=== PATIENT | male | born 1985 | race Caucasian/White ===

== ENCOUNTER 2016-10-02 19:22 | Inpatient (IN) | payer OTHER ==
[2016-10-02] MEDS ORDERED: diazePAM 5 MG TABLET PO SCH (22:00)
[2016-10-02 22:35] VITALS: BMI 28.7
[2016-10-02] MEDS ORDERED: METHADONE HCL 10 MG TABLET (FOR DETOX USE ONLY) PO ONE ×2 (23:00→23:12)
--- NOTE | 2016-10-02 23:07 | HP ---
COWS - Scale Resting Pulse: 1= [place] 81-100 Sweatin= Chills/Flushing Restless Observation: 1= Difficult to Sit Still Pupil Size: 0= Normal to Room Light Bone or Joint Aches: 2= Severe Diffuse Aches Runny Nose/ Eye Tearin= Runny Nose/Eyes GI Upset > 30mins: 3= Vomiting/Diarrhea Tremor Observation: 2= Slight Tremor Visible Yawning Observation: 1= 1-2x During Session Anxiety or Irritability: 2=Irritable/Anxious Goose Flesh Skin: 0=Smooth Skin COWS Score: 15 CIWA Score - CIWA Score Nausea/Vomitin-Mild Nausea/No Vomiting Muscle Tremors: 4-Moderate,w/Arms Extend Anxiety: 4-Mod. Anxious/Guarded Agitation: 4-Moderately Restless Paroxysmal Sweats: 1-Minimal Palms Moist Orientation: 0-Oriented Tacttile Disturbances: 0-None Auditory Disturbances: 0-None Visual Disturbances: 0-None Headache: 0-None Present CIWA-Ar Total Score: 14 Admission [facility] - HPI Chief Complaint: withdrawal sx Allergies/Adverse Reactions: Allergies Allergy/AdvReac Type Severity Reaction Status Date / Time No Known Allergies Allergy Verified 03/11/15 17:43 History of Present Illness: 31 years old male with long history of alcohol opiate nicotine xanax dependence denies medical issue has depression is admitted to detox Exam Limitations: No Limitations - Ebola screening Have you traveled outside of the country in the last 21 days: No (N) Have you had contact with anyone from an Ebola affected area: No Have you been sick,other than usual withdrawal symptoms: No Do you have a fever: No - Review of Systems Constitutional: Chills, Changes in sleep, Weight Stable EENT: reports: No Symptoms Reported Respiratory: reports: No Symptoms reported Cardiac: reports: No Symptoms Reported GI: reports: Nausea, Poor Fluid Intake, Abdominal cramping : reports: No Symptoms Reported Musculoskeletal: reports: Back Pain, Joint Pain, Muscle Pain, Neck Pain Integumentary: reports: Change in Color (arms) Neuro: reports: Tremors Endocrine: reports: No Symptoms Reported Hematology: reports: No Symptoms Reported Psychiatric: reports: Judgement Intact, Orientated x3, Depressed Other Systems: Reviewed and Negative Patient History - Patient Medical History Hx Anemia: No Hx Asthma: Yes Hx Chronic Obstructive Pulmonary Disease (COPD): No Hx Cancer: No Hx Cardiac Disorders: No Hx Congestive Heart Failure: No Hx Hypertension: No Hx Hypercholesterolemia: No Hx Pacemaker: No HX Cerebrovascular Accident: No Hx Seizures: No Hx Dementia: No Hx Diabetes: No Hx Gastrointestinal Disorders: No Hx Liver Disease: No Hx Genitourinary Disorders: No Hx Sexually Transmitted Disorders: No Hx Renal Disease (ESRD): No Hx Thyroid Disease: No Hx Human Immunodeficiency Virus (HIV): No Hx Hepatitis C: No Hx Depression: Yes (anxiety) Hx Suicide Attempt: No Hx Bipolar Disorder: No Hx Schizophrenia: No - Patient Surgical History Past Surgical History: Yes Hx Neurologic Surgery: No Hx Cataract Extraction: No Hx Cardiac Surgery: No Hx Lung Surgery: No Hx Breast Surgery: No Hx Breast Biopsy: No Hx Abdominal Surgery: No Hx Appendectomy: No Hx Cholecystectomy: No Hx Genitourinary Surgery: No Hx Orthopedic Surgery: Yes (right hand, fx 2006) Anesthesia Reaction: No - PPD History Previous Implant?: Yes Documented Results: Negative w/proof Implanted On Prior R Admission?: Yes Date: 03/13/15 PPD to be Administered?: Yes - Smoking Cessation Smoking history: Current every day smoker Have you smoked in the past 12 months: Yes Aproximately how many cigarettes per day: 20 Cigars Per Day: 0 Hx Chewing Tobacco Use: No Initiated information on smoking cessation: Yes 'Breaking Loose' booklet given: 10/02/16 - Substance & Tx. History Hx Alcohol Use: Yes Hx Substance Use: Yes Substance Use Type: Alcohol, Opiates, Tranquilizers Hx Substance Use Treatment: Yes (03/11-03/13/16 [facility] - Substances Abused Alcohol Route: Oral Frequency: 3-6 times per week Amount used: volka pint Age of first use: 12 Date of Last Use: 10/01/16 Heroin Route: Injection Frequency: Daily Amount used: 40 bags Age of first use: 29 Date of Last Use: 10/01/16 Alprazolam (Xanax) Route: Oral Frequency: Daily Amount used: 4 mg Age of first use: 18 Date of Last Use: 10/02/16 Family Disease History - Family Disease History Family Disease History: Diabetes: Grandparent, Other: Mother ( suicid), Brother (overdose ), Sister ( suicid) Admission Physical Exam BHS - Vital Signs Vital Signs: Vital Signs - 24 hr 10/02/16 22:33 Temperature 97.0 F L Pulse Rate 86 Respiratory 18 Rate Blood Pressure 139/83 - Physical General Appearance: Yes: Nourished, Appropriately Dressed, Mild Distress, Tremorous, Irritable, Sweating, Anxious HEENTM: Yes: Hearing grossly Normal, Normal ENT Inspection, Normocephalic, Normal Voice Respiratory: Yes: Chest Non-Tender, Lungs Clear, Normal Breath Sounds, No Respiratory Distress, No Accessory Muscle Use Neck: Yes: Supple, Trachea in good position Breast: Yes: Breasts Symetrical Cardiology: Yes: Regular Rhythm, Regular Rate, S1, S2 Abdominal: Yes: Non Tender, Soft Genitourinary: Yes: Within Normal Limits Back: Yes: Normal Inspection Musculoskeletal: Yes: full range of Motion, Gait Steady, Back pain, Muscle Pain Extremities: Yes: Normal Range of Motion, Non-Tender, Tremors Neurological: Yes: Fully Oriented, Alert, Motor Strength 5/5, Depressed Affect Integumentary: Yes: Warm, Track [place] Lymphatic: Yes: Within Normal Limits - Diagnostic (1) Depression Current Visit: Yes Status: Suspected Qualifiers: Depression Type: dysthymia Qualified Code(s): F34.1 - Dysthymic disorder (2) Nicotine dependence Current Visit: Yes Status: Acute Qualifiers: Nicotine product type: cigarettes Substance use status: in withdrawal Qualified Code(s): F17.213 - Nicotine dependence, cigarettes, with withdrawal (3) Opioid dependence with withdrawal Current Visit: Yes Status: Acute (4) Alcohol dependence with uncomplicated withdrawal Current Visit: Yes Status: Acute (5) Sedative, hypnotic or anxiolytic dependence with withdrawal, uncomplicated Current Visit: Yes Status: Acute (6) Asthma Current Visit: Yes Status: Acute Qualifiers: Asthma severity: mild intermittent Asthma complication type: with status asthmaticus Qualified Code(s): J45.22 - Mild intermittent asthma with status asthmaticus Cleared for Admission [facility] - Detox or Rehab [facility] Level of Care: Medically Managed Detox Regimen/Protocol: Methadone/Valium [facility] Breath Alcohol Content Breath Alcohol Content: 0 Urine Drug Screen - Results Drug Screen Negative: No Urine Drug Screen Results: OPI-Opiates, BZO-Benzodiazepines
[2016-10-02] MEDS ORDERED: ACETAMINOPHEN 325 MG TABLET (FP) PO PRN (23:12)
[2016-10-02] MEDS ORDERED: guaiFENesin/D-METHORPHAN HB 10 ML UNIT-DOSE CUPS PO PRN (23:12)
[2016-10-02] MEDS ORDERED: LOPERAMIDE HCL 2 MG CAPSULE PO PRN (23:12)
[2016-10-02] MEDS ORDERED: P-EPHED 60MG/TRIPROLIDI 2.5MG TABLET PO PRN (23:12)
[2016-10-02] MEDS ORDERED: diphenhydrAMINE HCL 50 MG CAPSULE PO PRN (23:12)
[2016-10-02] MEDS ORDERED: diazePAM 5 MG TABLET PO PRN (23:12)
[2016-10-02] MEDS ORDERED: NICOTINE POLACRILEX 4 MG GUM BUC PRN (23:12)
[2016-10-02] MEDS ORDERED: MENTHOL/PHENOL 1 EACH UD MM PRN (23:12)
[2016-10-02] MEDS ORDERED: IBUPROFEN 400 MG TABLET (FP) PO PRN (23:12)
[2016-10-02] MEDS ORDERED: MAGNESIUM CITRATE 300 ML BOTTLE PO PRN (23:12)
[2016-10-02] MEDS ORDERED: diazePAM 5 MG TABLET PO ONE (23:12)
[2016-10-02] MEDS ORDERED: MAG HYDROX/AL HYDROX/SIMETH 30 ML UNIT-DOSE CUP PO PRN (23:12)
[2016-10-02] MEDS ORDERED: MAGNESIUM HYDROX 2400MG/30ML ORAL SUSPENSION 30 ML CUP PO PRN (23:12)
[2016-10-02] MEDS ORDERED: ALBUTEROL SO4 6.7 GM HFA INHALER IH PRN (23:16)
[2016-10-03] MEDS ORDERED: METHADONE HCL 10 MG TABLET (FOR DETOX USE ONLY) PO ONE ×3 (00:06→23:00)
[2016-10-03] MEDS ORDERED: diazePAM 5 MG TABLET PO ONE (00:06)
[2016-10-03] MEDS: diazePAM 5 MG TABLET PO SCH ×3 (05:36→22:30)
[2016-10-03] MEDS ORDERED: METHADONE HCL 10 MG TABLET (FOR DETOX USE ONLY) PO SCH (10:00)
[2016-10-03] MEDS: NICOTINE 21 MG/24 HOURS TOPICAL PATCH TD SCH (10:27)
[2016-10-03] MEDS: PRENATAL VITAMINS W/ FOLIC ACID TABLET (FP) PO SCH (10:27)
[2016-10-03] MEDS: diazePAM 5 MG TABLET PO PRN ×2 (10:29→16:52)
[2016-10-03 10:35] LABS: MCH 28.4 pg (25.7-33.7); MCHC 33.6 g/dl (32.0-35.9); MEAN CELL VOLUME 84.4 fl (80-96); MEAN PLT VOLUME 7.4 fl (7.5-11.1); PLATELET COUNT 361 K/MM3 (134-434); RDW 14.5 % (11.9-15.9); WHITE BLOOD COUNT 9.5 K/mm3 (4.0-10.0)
[2016-10-03 10:46] LABS: ALBUMIN 3.1 g/dl (3.4-5.0); ALK PHOS 73 U/L (45-117); ANION GAP 6 (8-16); BILIRUBIN,TOTAL 0.4 mg/dL (0.2-1.0); CO2 29 mmol/L (21-32); CREATININE 0.7 mg/dL (0.7-1.3); GLUCOSE,RANDOM 90 mg/dL (74-106); SGOT/AST 14 U/L (15-37); SGPT/ALT 33 U/L (12-78); TOT PROT 6.8 g/dl (6.4-8.2)
[2016-10-03] MEDS ORDERED: diphenhydrAMINE HCL 50 MG CAPSULE PO PRN (11:05)
--- NOTE | 2016-10-03 11:05 | PN ---
BHS COWS - Scale Resting Pulse: 0= [place] 80 or Below Sweatin= Chills/Flushing Restless Observation: 3= Extraneous Movement Pupil Size: 2= Moderately Dilated Bone or Joint Aches: 4=Acute Joint/Muscle Pain Runny Nose/ Eye Tearin= None GI Upset > 30mins: 0= None Tremor Observation of Outstretched Hands: 2= Slight Tremor Visible Yawning Observation: 2= >3x During Session Anxiety or Irritability: 2=Irritable/Anxious Goose Flesh Skin: 0=Smooth Skin COWS Score: 16 BHS Progress Note (SOAP) Subjective: ANXIETY,SWEATS,TREMORS,YAWNING, FATIGUE, INTERMITTENT SLEEP Objective: 10/03/16 11:04 Vital Signs Temperature 96.3 F L 10/03/16 09:47 Pulse Rate 67 10/03/16 09:47 Respiratory Rate 18 10/03/16 09:47 Blood Pressure 131/67 10/03/16 09:47 O2 Sat by Pulse Oximetry (%) Laboratory Last Values WBC 9.5 K/mm3 (4.0-10.0) 10/03/16 07:00 RBC 4.67 M/mm3 (4.00-5.60) 10/03/16 07:00 Hgb 13.2 GM/dL (11.7-16.9) D 10/03/16 07:00 Hct 39.4 % (35.4-49) 10/03/16 07:00 MCV 84.4 fl (80-96) 10/03/16 07:00 MCH 28.4 pg (25.7-33.7) 10/03/16 07:00 MCHC 33.6 g/dl (32.0-35.9) 10/03/16 07:00 RDW 14.5 % (11.9-15.9) 10/03/16 07:00 Plt Count 361 K/MM3 (134-434) 10/03/16 07:00 MPV 7.4 fl (7.5-11.1) L 10/03/16 07:00 Sodium 139 mmol/L (136-145) 10/03/16 07:00 Potassium 4.2 mmol/L (3.5-5.1) 10/03/16 07:00 Chloride 104 mmol/L (98-107) 10/03/16 07:00 Carbon Dioxide 29 mmol/L (21-32) 10/03/16 07:00 Anion Gap 6 (8-16) L 10/03/16 07:00 BUN 14 mg/dL (7-18) D 10/03/16 07:00 Creatinine 0.7 mg/dL (0.7-1.3) 10/03/16 07:00 Creat Clearance w eGFR > 60 (>60) 10/03/16 07:00 Random Glucose 90 mg/dL (74-106) 10/03/16 07:00 Calcium 9.0 mg/dL (8.5-10.1) 10/03/16 07:00 Total Bilirubin 0.4 mg/dL (0.2-1.0) D 10/03/16 07:00 AST 14 U/L (15-37) L D 10/03/16 07:00 ALT 33 U/L (12-78) 10/03/16 07:00 Alkaline Phosphatase 73 U/L (45-117) D 10/03/16 07:00 Total Protein 6.8 g/dl (6.4-8.2) 10/03/16 07:00 Albumin 3.1 g/dl (3.4-5.0) L 10/03/16 07:00 Assessment: 10/03/16 11:04 WITHDRAWAL SX Plan: CONTINUE DETOX INCREASE BENADRYL 100 MG PO HS
--- NOTE | 2016-10-03 11:07 | PN ---
[facility] CIWA - CIWA Score Nausea/Vomitin-No Nausea/No Vomiting Muscle Tremors: 4-Moderate,w/Arms Extend Anxiety: 4-Mod. Anxious/Guarded Agitation: 2 Paroxysmal Sweats: 1-Minimal Palms Moist Orientation: 0-Oriented Tacttile Disturbances: 3-Moderate Itch/Numb/Burn Auditory Disturbances: 0-None Visual Disturbances: 0-None Headache: 0-None Present CIWA-Ar Total Score: 14
--- NOTE | 2016-10-03 11:33 | CONSULT ---
[facility] Psychiatric Consult - Data Date of interview: 10/03/16 Admission source: [facility] Identifying data: Patient is approached at bedside for psychiatric evaluation.Mr Rebolledo refused.Staff is made aware.
--- NOTE | 2016-10-03 20:00 | EKG ---
Test Reason : Blood Pressure : / mmHG Vent. Rate : 050 BPM Atrial Rate : 050 BPM P-R Int : 148 ms QRS Dur : 092 ms QT Int : 454 ms P-R-T Axes : 037 077 063 degrees QTc Int : 413 ms SINUS BRADYCARDIA WITH SINUS ARRHYTHMIA OTHERWISE NORMAL ECG WHEN COMPARED WITH ECG OF 03-OCT-2016 00:44, SINUS RHYTHM HAS REPLACED ECTOPIC ATRIAL RHYTHM NONSPECIFIC T WAVE ABNORMALITY NO LONGER EVIDENT IN INFERIOR LEADS Confirmed by OLIVER KELLER MD ([id number] on 10/03/2016 8:00:07 PM Referred By: Confirmed By:OLIVER KELLER MD
--- NOTE | 2016-10-03 20:00 | EKG ---
Test Reason : Blood Pressure : / mmHG Vent. Rate : 052 BPM Atrial Rate : 052 BPM P-R Int : 132 ms QRS Dur : 094 ms QT Int : 442 ms P-R-T Axes : 126 146 143 degrees QTc Int : 411 ms SUSPECT ARM LEAD REVERSAL, INTERPRETATION ASSUMES NO REVERSAL UNUSUAL P AXIS, POSSIBLE ECTOPIC ATRIAL BRADYCARDIA WITH UNDETERMINED RHYTHM IRREGULARITY LEFT POSTERIOR FASCICULAR BLOCK ABNORMAL ECG WHEN COMPARED WITH ECG OF 01-MAR-2015 20:05, ECTOPIC ATRIAL RHYTHM HAS REPLACED SINUS RHYTHM VENT. RATE HAS DECREASED BY 98 BPM T WAVE INVERSION NO LONGER EVIDENT IN INFERIOR LEADS Confirmed by OLIVER KELLER MD ([id number] on 10/03/2016 8:00:24 PM Referred By: Confirmed By:OLIVER KELLER MD
[2016-10-03] MEDS ORDERED: THIAMINE HCL 100 MG TABLET (FP) PO SCH (22:00)
[2016-10-04] MEDS: diazePAM 5 MG TABLET PO PRN ×2 (02:44→10:53)
[2016-10-04] MEDS: diazePAM 5 MG TABLET PO SCH (06:03)
[2016-10-04] MEDS ORDERED: METHADONE HCL 5 MG TABLET (FOR DETOX USE ONLY) PO SCH (10:00)
[2016-10-04] MEDS ORDERED: METHADONE HCL 10 MG TABLET (FOR DETOX USE ONLY) PO SCH (10:00)
[2016-10-04] MEDS ORDERED: diazePAM 5 MG TABLET PO SCH (10:00)
[2016-10-04 10:12] VITALS: BP 129/71; PULSE 62; TEMP 97
[2016-10-04] MEDS: NICOTINE 21 MG/24 HOURS TOPICAL PATCH TD SCH (10:52)
[2016-10-04] MEDS: PRENATAL VITAMINS W/ FOLIC ACID TABLET (FP) PO SCH (10:52)
--- NOTE | 2016-10-04 11:57 | DS ---
[facility] Detox Discharge Summary Admission Date: 10/02/16 Discharge Date: 10/04/16 - History Present History: Alcohol Dependence, Opioid Dependence, Sedative Dependence Additional Comments: PT DECLINED TO CONTINUE WITH DETOX STATING HE HAS AN EXAM TO DO OTHERWISE WILL FAIL THE CLASS. ALERT O X 3. NAD. Pertinent Past History: ASTHMA PALPITATIONS/SINUS TACHYCARDIA - Physical Exam Results Vital Signs: Vital Signs Temperature 97 F L 10/04/16 10:11 Pulse Rate 62 10/04/16 10:11 Respiratory Rate 20 10/04/16 10:11 Blood Pressure 129/71 10/04/16 10:11 O2 Sat by Pulse Oximetry (%) - Treatment Hospital Course: Detox Protocol Followed, Detoxed Safely, Responded well, Discharged Condition Good - Medication Discharge Medications: Ambulatory Orders Quetiapine Fumarate [Seroquel -] 400 mg PO HS 10/03/16 Zolpidem Tartrate [Ambien] 10 mg PO HS 10/03/16 - Diagnosis (1) Alcohol dependence with uncomplicated withdrawal Current Visit: Yes Status: Acute (2) Asthma Current Visit: Yes Status: Acute Qualifiers: Asthma severity: mild intermittent Asthma complication type: with status asthmaticus Qualified Code(s): J45.22 - Mild intermittent asthma with status asthmaticus (3) Nicotine dependence Current Visit: Yes Status: Acute Qualifiers: Nicotine product type: cigarettes Substance use status: in withdrawal Qualified Code(s): F17.213 - Nicotine dependence, cigarettes, with withdrawal (4) Opioid dependence with withdrawal Current Visit: Yes Status: Acute (5) Sedative, hypnotic or anxiolytic dependence with withdrawal, uncomplicated Current Visit: Yes Status: Acute - AMA Did Patient Leave Against Medical Advice: Yes (AMA)
[2016-10-05] MEDS ORDERED: diazePAM 5 MG TABLET PO SCH (10:00)
[2016-10-05] MEDS ORDERED: METHADONE HCL 5 MG TABLET (FOR DETOX USE ONLY) PO SCH (10:00)
[2016-10-06] MEDS ORDERED: diazePAM 5 MG TABLET PO SCH (10:00)
[2016-10-06] MEDS ORDERED: METHADONE HCL 10 MG TABLET (FOR DETOX USE ONLY) PO SCH (10:00)
[2016-10-07] MEDS ORDERED: METHADONE HCL 5 MG TABLET (FOR DETOX USE ONLY) PO SCH (06:00)
[2016-10-07] MEDS ORDERED: METHADONE HCL 10 MG TABLET (FOR DETOX USE ONLY) PO SCH (10:00)
[2016-10-07] MEDS ORDERED: diazePAM 5 MG TABLET PO SCH (10:00)
[2016-10-08] MEDS ORDERED: METHADONE HCL 5 MG TABLET (FOR DETOX USE ONLY) PO SCH (06:00)
== END 2016-10-04 11:30 | disposition left against medical advice (07) | DRG 770 ==
LOC: YASAS 19:22 → Y3N 23:53
PROVIDERS: ADMIT Internal Medicine; ATTEND Internal Medicine
PROC: HZ2ZZZZ Detoxification Services for Substance Abuse Treatment (ICD-10-PCS; principal; 2016-10-02)
DX: F11.23 Opioid dependence with withdrawal (principal); F13.230 Sedative, hypnotic or anxiolytic dependence with withdrawal, uncomplicated; F10.230 Alcohol dependence with withdrawal, uncomplicated; F17.213 Nicotine dependence, cigarettes, with withdrawal; J45.22 Mild intermittent asthma with status asthmaticus
CPT/HCPCS: 36415; 80053; 85027; 86593; 86803; 93005; 93010

== ENCOUNTER 2018-05-24 17:58 | Inpatient (IN) | payer MEDICARE ==
[2018-05-24 18:22] VITALS: BMI 27.2
--- NOTE | 2018-05-24 19:36 | HP ---
COWS - Scale Resting Pulse: 1= [place] 81-100 Sweatin=Flushed/Facial Moisture Restless Observation: 1= Difficult to Sit Still Pupil Size: 0= Normal to Room Light Bone or Joint Aches: 2= Severe Diffuse Aches Runny Nose/ Eye Tearin= None GI Upset > 30mins: 2= Nausea/Diarrhea Tremor Observation: 2= Slight Tremor Visible Yawning Observation: 0= None Anxiety or Irritability: 2=Irritable/Anxious Goose Flesh Skin: 3=Piloerection COWS Score: 15 CIWA Score - Admission Criteria [facility] Guidelines: Admission for Medically Managed Detox: Requires at least one of the followin. CIWA greater than 12 2. Seizures within the past 24 hours 3. Delirium tremens within the past 24 hours 4. Hallucinations within the past 24 hours 5. Acute intervention needed for co occurring medical disorder 6. Acute intervention needed for co occurring psychiatric disorder 7. Severe withdrawal that cannot be handled at a lower level of care (continued vomiting, continued diarrhea, abnormal vital signs) requiring intravenous medication and/or fluids 8. Admission ROS [facility] Chief Complaint: I want to detox from heroin Allergies/Adverse Reactions: Allergies Allergy/AdvReac Type Severity Reaction Status Date / Time No Known Allergies Allergy Verified 10/03/16 02:26 History of Present Illness: 33 year old male with dependence on opiates presents for detox, he denies recent treatment, last treatment was last year at [facility], he signed out AMA. He drinks alcohol socially. Exam Limitations: No Limitations - Ebola screening Have you traveled outside of the country in the last 21 days: No (N) Have you had contact with anyone from an Ebola affected area: No Have you been sick,other than usual withdrawal symptoms: No Do you have a fever: No - Review of Systems Constitutional: Chills, Loss of Appetite, Night Sweats, Changes in sleep, Unintentional Wgt. Loss EENT: reports: Blurred Vision, Nose Congestion Respiratory: reports: No Symptoms reported Cardiac: reports: No Symptoms Reported GI: reports: Diarrhea, Nausea, Poor Appetite, Poor Fluid Intake, Vomiting, Abdominal cramping : reports: No Symptoms Reported Musculoskeletal: reports: Back Pain, Joint Pain, Muscle Pain, Muscle Weakness Integumentary: reports: Erythema Neuro: reports: Numbness, Paresthesia, Tremors Endocrine: reports: No Symptoms Reported Hematology: reports: No Symptoms Reported Psychiatric: reports: Orientated x3, Anxious, Depressed Other Systems: Reviewed and Negative Patient History - Patient Medical History Hx Anemia: No Hx Asthma: Yes Hx Chronic Obstructive Pulmonary Disease (COPD): No Hx Cancer: No Hx Cardiac Disorders: No Hx Congestive Heart Failure: No Hx Hypertension: No Hx Hypercholesterolemia: No Hx Pacemaker: No HX Cerebrovascular Accident: No Hx Seizures: No Hx Dementia: No Hx Diabetes: No Hx Gastrointestinal Disorders: No Hx Liver Disease: No Hx Genitourinary Disorders: No Hx Sexually Transmitted Disorders: No Hx Renal Disease (ESRD): No Hx Thyroid Disease: No Hx Human Immunodeficiency Virus (HIV): No Hx Hepatitis C: No Hx Depression: Yes Hx Suicide Attempt: No Hx Bipolar Disorder: No Hx Schizophrenia: No - Patient Surgical History Past Surgical History: Yes Hx Neurologic Surgery: No Hx Cataract Extraction: No Hx Cardiac Surgery: No Hx Lung Surgery: No Hx Breast Surgery: No Hx Breast Biopsy: No Hx Abdominal Surgery: No Hx Appendectomy: No Hx Cholecystectomy: No Hx Genitourinary Surgery: No Hx Section: No Hx Orthopedic Surgery: Yes (right hand, fx 2006) Anesthesia Reaction: No - PPD History Previous Implant?: No Documented Results: Negative w/proof Implanted On Prior [facility] Admission?: Yes Date: 10/06/16 PPD to be Administered?: Yes - Smoking Cessation Smoking history: Current every day smoker Have you smoked in the past 12 months: Yes Aproximately how many cigarettes per day: 20 Cigars Per Day: 0 Hx Chewing Tobacco Use: No Initiated information on smoking cessation: Yes 'Breaking Loose' booklet given: 05/24/18 - Substance & Tx. History Hx Alcohol Use: Yes (Vodka) Hx Substance Use: Yes Substance Use Type: Cocaine, Heroin Hx Substance Use Treatment: Yes - Substances abused Heroin Substance route: Injection Amount used: 30 bags Age of first use: 29 Date of last use: 05/24/18 Family Disease History - Family Disease History Family Disease History: Diabetes: Grandparent, Other: Mother (suicide), Brother (overdose ), Sister ( suicide) Admission Physical Exam BHS - Vital Signs Vital Signs: Vital Signs - 24 hr 05/24/18 18:21 Temperature 96.9 F L Pulse Rate 84 Respiratory 18 Rate Blood Pressure 137/79 - Physical General Appearance: Yes: No Apparent Distress HEENTM: Yes: Hearing grossly Normal, Normocephalic, Normal Voice, GERI, Tm's normal Respiratory: Yes: Chest Non-Tender, Lungs Clear, No Respiratory Distress, No Accessory Muscle Use Neck: Yes: No masses,lesions,Nodules, Supple Breast: Yes: Breast Exam Deferred Cardiology: Yes: Regular Rhythm, Regular Rate, S1, S2 Abdominal: Yes: Within Normal Limits Genitourinary: Yes: Within Normal Limits Back: Yes: Normal Inspection Musculoskeletal: Yes: full range of Motion, Gait Steady, Pelvis Stable Extremities: Yes: Normal Inspection Neurological: Yes: jack setter II-XII NML intact, Fully Oriented, Alert, Normal Mood/ Affect, Normal Response Integumentary: Yes: Cold, Clammy, Track [place] - Diagnostic (1) Asthma Current Visit: No Status: Chronic Qualifiers: Asthma severity: mild Asthma persistence: intermittent Asthma complication type: with status asthmaticus Qualified Code(s): J45.22 - Mild intermittent asthma with status asthmaticus (2) Nicotine dependence Current Visit: Yes Status: Acute Qualifiers: Nicotine product type: cigarettes Substance use status: uncomplicated Qualified Code(s): F17.210 - Nicotine dependence, cigarettes, uncomplicated (3) Opioid dependence with withdrawal Current Visit: Yes Status: Acute Cleared for Admission S - Detox or Rehab S Level of Care: Medically Managed Detox Regimen/Protocol: Methadone Breathalyzer - Breathalyzer Breathalyzer: 0 Urine Drug Screen - Test Device Lot number: [id number] Expiration date: 01/18/20 - Control Is test valid?: Yes - Results Drug screen NEGATIVE: No Urine drug screen results: ELVIA-Cocaine, FEN-Fentanyl, MOP-Opiates Inpatient Rehab Admission - Rehab Decision to Admit Inpatient rehab admission?: No - Initial Determination Are CD services needed?: Yes Free of communicable disease: Yes Not in need of hospitalization: Yes
[2018-05-24] MEDS ORDERED: ACETAMINOPHEN 325 MG TABLET (FP) PO PRN (19:39)
[2018-05-24] MEDS ORDERED: MELATONIN 5 MG TABLETS PO PRN (19:39)
[2018-05-24] MEDS ORDERED: MAGNESIUM HYDROX 2400MG/30ML ORAL SUSPENSION 30 ML CUP PO PRN (19:39)
[2018-05-24] MEDS ORDERED: BISMUTH SUBSALICYLATE 524 MG/30 ML UD PO PRN (19:39)
[2018-05-24] MEDS ORDERED: hydrOXYzine PAMOATE 50 MG CAPSULE (FP) PO PRN (19:39)
[2018-05-24] MEDS ORDERED: ONDANSETRON *ODT* 4 MG TABLET SL PRN (19:39)
[2018-05-24] MEDS ORDERED: IBUPROFEN 400 MG TABLET (FP) PO PRN (19:39)
[2018-05-24] MEDS ORDERED: MAGNESIUM CITRATE 300 ML BOTTLE PO PRN (19:39)
[2018-05-24] MEDS ORDERED: NICOTINE POLACRILEX 2 MG GUM BUC PRN (19:39)
[2018-05-24] MEDS ORDERED: MAG HYDROX/AL HYDROX/SIMETH 30 ML UNIT-DOSE CUP PO PRN (19:39)
[2018-05-24] MEDS ORDERED: cloNIDine HCL 0.1 MG TABLET PO PRN (19:39)
[2018-05-24] MEDS ORDERED: METHOCARBAMOL 500 MG TABLET PO PRN (19:39)
[2018-05-24] MEDS ORDERED: MENTHOL/PHENOL 1 EACH UD MM PRN (19:39)
[2018-05-24] MEDS ORDERED: METHADONE HCL 10 MG TABLET (FOR DETOX USE ONLY) PO ONE ×2 (20:45→23:00)
[2018-05-24] MEDS: clonazePAM 0.5 MG TABLET PO PRN (20:51)
[2018-05-24] MEDS: NICOTINE 14 MG/24 HOURS TOPICAL PATCH TD SCH (20:51)
[2018-05-24] MEDS ORDERED: THIAMINE HCL 100 MG TABLET (FP) PO SCH (22:00)
[2018-05-25] MEDS: clonazePAM 0.5 MG TABLET PO PRN ×2 (03:59→10:08)
[2018-05-25 09:56] LABS: ALBUMIN 3.4 g/dl (3.4-5.0); ALK PHOS 73 U/L (45-117); ANION GAP 8 MMOL/L (8-16); BILIRUBIN,TOTAL 0.5 mg/dL (0.2-1); BLOOD UREA NITROGEN 15 mg/dL (7-18); CALCIUM 8.5 mg/dL (8.5-10.1); CHLORIDE 104 mmol/L (98-107); CO2 27 mmol/L (21-32); CREATININE 0.8 mg/dL (0.55-1.3); GLUCOSE,RANDOM 103 mg/dL (74-106); HEMOGLOBIN 13.3 GM/dL (11.7-16.9); MCH 29.6 pg (25.7-33.7); MEAN CELL VOLUME 87.1 fl (80-96); MEAN PLT VOLUME 7.3 fl (7.5-11.1); PLATELET COUNT 369 K/MM3 (134-434); RBC 4.48 M/mm3 (4.00-5.60); RDW 13.8 % (11.9-15.9); SGOT/AST 13 U/L (15-37); SGPT/ALT 25 U/L (13-61); SODIUM 139 mmol/L (136-145); TOT PROT 7.5 g/dl (6.4-8.2); WHITE BLOOD COUNT 10.8 K/mm3 (4.0-10.0)
[2018-05-25] MEDS ORDERED: PRENATAL VITAMINS W/ FOLIC ACID TABLET (FP) PO SCH (10:00)
[2018-05-25] MEDS ORDERED: METHADONE HCL 5 MG TABLET (FOR DETOX USE ONLY) PO ONE (10:00)
[2018-05-25] MEDS: NICOTINE 14 MG/24 HOURS TOPICAL PATCH TD SCH (10:04)
--- NOTE | 2018-05-25 15:40 | PN ---
BHS COWS - Scale Resting Pulse: 1= [place] 81-100 Sweatin= Chills/Flushing Restless Observation: 3= Extraneous Movement Pupil Size: 0= Normal to Room Light Bone or Joint Aches: 2= Severe Diffuse Aches Runny Nose/ Eye Tearin= Runny Nose/Eyes GI Upset > 30mins: 3= Vomiting/Diarrhea Tremor Observation of Outstretched Hands: 2= Slight Tremor Visible Yawning Observation: 0= None Anxiety or Irritability: 2=Irritable/Anxious Goose Flesh Skin: 0=Smooth Skin COWS Score: 16 BHS Progress Note (SOAP) Subjective: Sweating, chills, tremor, muscle ache, diarrhea, interrupted sleep, anxious Objective: 05/25/18 15:39 Last Vital Signs Temp Pulse Resp BP Pulse Ox 97.5 F L 89 18 121/78 05/25/18 09:26 05/25/18 09:26 05/25/18 09:26 05/25/18 09:26 Laboratory Tests 05/25/18 05/25/18 05/25/18 07:50 07:50 07:50 WBC 10.8 H RBC 4.48 Hgb 13.3 Hct 39.0 MCV 87.1 MCH 29.6 MCHC 34.0 RDW 13.8 Plt Count 369 MPV 7.3 L Sodium 139 Potassium 4.0 Chloride 104 Carbon Dioxide 27 Anion Gap 8 BUN 15 Creatinine 0.8 Creat Clearance w eGFR 112.03 Random Glucose 103 Calcium 8.5 Total Bilirubin 0.5 AST 13 L ALT 25 Alkaline Phosphatase 73 Total Protein 7.5 Albumin 3.4 RPR Titer Nonreactive Labs reviewed Assessment: 05/25/18 15:39 Withdrawal symptoms Plan: Continue detox Encouraged PO water hydration
[2018-05-25 15:44] VITALS: BP 138/80; PULSE 96; TEMP 97
--- NOTE | 2018-05-25 16:12 | DS ---
[facility] Detox Discharge Summary Admission Date: 05/24/18 Discharge Date: 05/25/18 - History Present History: Opioid Dependence Additional Comments: Patient demanded to leave AMA despite encouragement from staff to complete detox. As per patient, he has a class tomorrow morning and he knew when he came here. Patient instructed to call 911 if feeling sick or withdrawal symptoms and to see his PCP within 3 days. Patient is A/A/Ox3, in nad, vss, ambulatory. Pertinent Past History: Asthma Nicotine dependence Opioid dependence - Physical Exam Results Vital Signs: Vital Signs Temperature 97.0 F L 05/25/18 15:43 Pulse Rate 96 H 05/25/18 15:43 Respiratory Rate 18 05/25/18 15:43 Blood Pressure 138/80 05/25/18 15:43 O2 Sat by Pulse Oximetry (%) Pertinent Admission Physical Exam Findings: Withdrawal symptoms Laboratory Tests 05/25/18 05/25/18 05/25/18 07:50 07:50 07:50 WBC 10.8 H RBC 4.48 Hgb 13.3 Hct 39.0 MCV 87.1 MCH 29.6 MCHC 34.0 RDW 13.8 Plt Count 369 MPV 7.3 L Sodium 139 Potassium 4.0 Chloride 104 Carbon Dioxide 27 Anion Gap 8 BUN 15 Creatinine 0.8 Creat Clearance w eGFR 112.03 Random Glucose 103 Calcium 8.5 Total Bilirubin 0.5 AST 13 L ALT 25 Alkaline Phosphatase 73 Total Protein 7.5 Albumin 3.4 RPR Titer Nonreactive Labs reviewed - Medication Discharge Medications: Ambulatory Orders NK [No Known Home Medication] 05/24/18 - Diagnosis (1) Nicotine dependence Status: Chronic Qualifiers: Nicotine product type: cigarettes Substance use status: uncomplicated Qualified Code(s): F17.210 - Nicotine dependence, cigarettes, uncomplicated (2) Opioid dependence with withdrawal Status: Acute (3) Asthma Status: Chronic Qualifiers: Asthma severity: mild Asthma persistence: intermittent Asthma complication type: with status asthmaticus Qualified Code(s): J45.22 - Mild intermittent asthma with status asthmaticus - AMA Did Patient Leave Against Medical Advice: Yes (Instructed to call [phone] if feeling sick or any withdrawal symptoms)
[2018-05-26] MEDS ORDERED: METHADONE HCL 10 MG TABLET (FOR DETOX USE ONLY) PO ONE (10:00)
--- NOTE | 2018-05-26 15:38 | EKG ---
Test Reason : Blood Pressure : / mmHG Vent. Rate : 061 BPM Atrial Rate : 061 BPM P-R Int : 132 ms QRS Dur : 086 ms QT Int : 430 ms P-R-T Axes : 031 065 047 degrees QTc Int : 432 ms NORMAL SINUS RHYTHM ST ELEVATION, CONSIDER EARLY REPOLARIZATION BORDERLINE ECG WHEN COMPARED WITH ECG OF 03-OCT-2016 05:58, NO SIGNIFICANT CHANGE WAS FOUND Confirmed by TRANG PHILLIPS MD ([id number]) on 05/26/2018 3:37:42 PM Referred By: Confirmed By:TRANG PHILLIPS MD
[2018-05-27] MEDS ORDERED: METHADONE HCL 5 MG TABLET (FOR DETOX USE ONLY) PO ONE (06:00)
== END 2018-05-25 16:04 | disposition left against medical advice (07) | DRG 770 ==
LOC: YASAS 17:58 → Y6N 20:18
PROVIDERS: ADMIT Surgery; ATTEND Surgery
PROC: HZ2ZZZZ Detoxification Services for Substance Abuse Treatment (ICD-10-PCS; principal; 2018-05-24)
DX: F11.23 Opioid dependence with withdrawal (principal); F17.210 Nicotine dependence, cigarettes, uncomplicated; F32.9 Major depressive disorder, single episode, unspecified; J45.22 Mild intermittent asthma with status asthmaticus
CPT/HCPCS: 36415; 80053; 85027; 86593; 93005; 93010; J0735

== ENCOUNTER 2018-06-21 21:31 | Emergency (ER) | payer SELFPAY ==
[2018-06-21 21:55] VITALS: BP 147/94; PULSE 94; TEMP 98; BMI 29.0
[2018-06-21] MEDS ORDERED: IBUPROFEN 400 MG TABLET (FP) PO ONE ×2 (23:30→23:38)
[2018-06-21] MEDS ORDERED: CYCLOBENZAPRINE HCL 10 MG TABLET (FP) PO ONE (23:30)
[2018-06-21] MEDS ORDERED: METHOCARBAMOL 500 MG TABLET PO ONE (23:34)
[2018-06-21] MEDS ORDERED: METHOCARBAMOL 500 MG TABLET ONE (23:37)
--- NOTE | 2018-06-21 23:55 | PDOC ---
History of Present Illness - General Chief Complaint: Injury Stated Complaint: FALL Time Seen by Provider: 06/21/18 23:19 History Source: Patient Exam Limitations: No Limitations Past History - Past Medical History Allergies/Adverse Reactions: Allergies Allergy/AdvReac Type Severity Reaction Status Date / Time No Known Allergies Allergy Verified 05/24/18 20:13 Home Medications: Ambulatory Orders Methocarbamol [Robaxin -] 1,000 mg PO QID PRN #16 tablet 06/21/18 Anemia: No Asthma: No Cancer: No Cardiac Disorders: No CVA: No COPD: No CHF: No Dementia: No Diabetes: No GI Disorders: No Disorders: No HTN: No Hypercholesterolemia: No Kidney Stones: No Liver Disease: No Psychiatric Problems: Yes (ADHd) Seizures: No Thyroid Disease: No - Surgical History Abdominal Surgery: No Appendectomy: No Cardiac Surgery: No Cholecystectomy: No Lung Surgery: No Neurologic Surgery: No Orthopedic Surgery: Yes (right hand, fx 2006) - Reproductive History Testicular Surgery: No - Immunization History Immunization Up to Date: Yes - Suicide/Smoking/Psychosocial Hx Smoking History: Never smoked Have you smoked in the past 12 months: Yes Number of Cigarettes Smoked Daily: 20 Cigars Per Day: 0 'Breaking Loose' booklet given: 05/24/18 Hx Alcohol Use: No Drug/Substance Use Hx: No Substance Use Type: Cocaine, Heroin Hx Substance Use Treatment: Yes Trauma Specific PMHX - Complaint Specific PMHX Arthritis: No *Physical Exam - Vital Signs Last Vital Signs Temp Pulse Resp BP Pulse Ox 98 F 94 H 20 147/94 10 L 06/21/18 21:52 06/21/18 21:52 06/21/18 21:52 06/21/18 21:52 06/21/18 21:52 - Physical Exam General Appearance: No: Apparent Distress HEENT: positive: Other (no head trauma) Neck: positive: Supple. negative: Rigidity, Tender lateral, Tender midline Respiratory/Chest: positive: Lungs Clear, Normal Breath Sounds. negative: Respiratory Distress Cardiovascular: positive: Regular Rhythm, Regular Rate, S1, S2. negative: Murmur Gastrointestinal/Abdominal: positive: Normal Bowel Sounds, Soft. negative: Tender, Distended, Guarding, Rebound Musculoskeletal: positive: Other (Mild B/L lumbar paraspinal tenderness). negative: Vertebral Tenderness Extremity: positive: Normal Capillary Refill, Normal Inspection, Other (FROM of R knee, no joint laxity, no deformity, no effusion or swelling). negative: Swelling Integumentary: positive: Normal Color. negative: Swelling, Ecchymosis, Bruising Neurologic: positive: Alert, Normal Mood/Affect ED Treatment Course - Medications Given in the ED: ED Medications Discontinued Medications Generic Name Dose Route Start Last Admin Trade Name Freq PRN Reason Stop Dose Admin Cyclobenzaprine HCl 10 mg 06/21/18 23:30 06/21/18 23:42 Flexeril - PO 06/21/18 23:31 Not Given ONCE ONE Ibuprofen 800 mg 06/21/18 23:30 06/21/18 23:41 Motrin - PO 06/21/18 23:31 800 mg ONCE ONE Administration Methocarbamol 1,000 mg 06/21/18 23:34 06/21/18 23:42 Robaxin - PO 06/21/18 23:35 1,000 mg ONCE ONE Administration Medical Decision Making - Medical Decision Making 33 y/o M with hx of substance abuse, asthma presents with R knee and lower back pain after slipping on pasta sauce and falling forward at [employer] today. Denies head/neck trauma, LOC, numbness/tingling/weakness of extremities Likely with back sprain and mild R knee sprain (patient able to ambulate around ED in NAD) Not suspicious for fracture or dislocation based on PE Given Motrin, Robaxin Stable for dc 06/21/18 23:48 *DC/Admit/Observation/Transfer Diagnosis at time of Disposition: Sprain of lumbar region Qualifiers: Encounter type: initial encounter Qualified Code(s): S33.5XXA - Sprain of ligaments of lumbar spine, initial encounter Right knee sprain Qualifiers: Encounter type: initial encounter Involved ligament of knee: unspecified ligament Qualified Code(s): S83.91XA - Sprain of unspecified site of right knee , initial encounter - Discharge Dispostion Disposition: HOME Condition at time of disposition: Stable Decision to Admit order: No - Prescriptions Prescriptions: Methocarbamol [Robaxin -] 1,000 mg PO QID PRN #16 tablet PRN Reason: Muscle Spasms - Referrals - Patient Instructions Printed Discharge Instructions: DI for Back Strain or Sprain, DI for Knee Pain Additional Instructions: Thank you for choosing [facility]. It was a pleasure taking care of you. You may take Motrin 600 mg every 6 hours by mouth as needed for mild to moderate pain. Take Motrin with food. You were also prescribed Robaxin as needed for muscle spasms. This medication can also make you drowsy so please be cautious with driving or performing heavy physical work. Follow-up with your doctor for further evaluation Return to the Emergency Department if your symptoms worsen or persist or have other concerning symptoms. - Post Discharge Activity
== END 2018-06-22 00:50 | disposition home or self-care (01) ==
LOC: JER 21:31
DX: S33.5XXA Sprain of ligaments of lumbar spine, initial encounter (principal); S83.8X1A Sprain of other specified parts of right knee, initial encounter; W01.0XXA Fall on same level from slipping, tripping and stumbling without subsequent striking against object, initial encounter; Y93.89 Activity, other specified; Y92.512 Supermarket, store or market as the place of occurrence of the external cause; Y99.8 Other external cause status
CPT/HCPCS: 99281-25

== ENCOUNTER 2018-07-15 22:02 | Inpatient (IN) | payer SELFPAY ==
[2018-07-16 09:53] VITALS: BMI 27.2
--- NOTE | 2018-07-16 11:21 | HP ---
COWS - Scale Resting Pulse: 1= DC 81-100 Sweatin= Chills/Flushing Restless Observation: 1= Difficult to Sit Still Pupil Size: 1= Pupils >than Normal Bone or Joint Aches: 2= Severe Diffuse Aches Runny Nose/ Eye Tearin= Runny Nose/Eyes GI Upset > 30mins: 2= Nausea/Diarrhea Tremor Observation: 2= Slight Tremor Visible Yawning Observation: 1= 1-2x During Session Anxiety or Irritability: 2=Irritable/Anxious Goose Flesh Skin: 0=Smooth Skin COWS Score: 15 CIWA Score - Admission Criteria OASAS Guidelines: Admission for Medically Managed Detox: Requires at least one of the followin. CIWA greater than 12 2. Seizures within the past 24 hours 3. Delirium tremens within the past 24 hours 4. Hallucinations within the past 24 hours 5. Acute intervention needed for co occurring medical disorder 6. Acute intervention needed for co occurring psychiatric disorder 7. Severe withdrawal that cannot be handled at a lower level of care (continued vomiting, continued diarrhea, abnormal vital signs) requiring intravenous medication and/or fluids 8. Admission ROS [facility] Chief Complaint: i need help to stop using heroin Allergies/Adverse Reactions: Allergies Allergy/AdvReac Type Severity Reaction Status Date / Time No Known Allergies Allergy Verified 05/24/18 20:13 History of Present Illness: this 33 years old male with heroin dependence seeking detox,withdrawal symptom, last detox 05/24/18 to 05/25/18 not completed i stop showed patient is on suboxone 8ngs/2 mgs sl bid has prescription on 07/08,adderall stated did not take medication nicotine dependence 10 cigarette/day,would like to have nicotine patch insomnia need detox from heroin dr Joselin Cornell called by Joelle Tomlin ,was told that she will not prescribe Suboxone any more Exam Limitations: No Limitations - Ebola screening Have you traveled outside of the country in the last 21 days: No (N) Have you had contact with anyone from an Ebola affected area: No Do you have a fever: No - Review of Systems Constitutional: Chills, Loss of Appetite, Malaise, Night Sweats, Changes in sleep EENT: reports: No Symptoms Reported Respiratory: reports: No Symptoms reported Cardiac: reports: No Symptoms Reported GI: reports: Diarrhea, Nausea, Vomiting, Abdominal cramping : reports: No Symptoms Reported Musculoskeletal: reports: Back Pain, Joint Pain, Muscle Pain, Joint Stiffness Integumentary: reports: Dryness Neuro: reports: Headache, Tremors Endocrine: reports: No Symptoms Reported Hematology: reports: No Symptoms Reported Psychiatric: reports: No Sypmtoms Reported, Judgement Intact, Mood/Affect Appropiate, Orientated x3 Other Systems: Reviewed and Negative Patient History - Patient Medical History Hx Anemia: No Hx Asthma: No Hx Chronic Obstructive Pulmonary Disease (COPD): No Hx Cancer: No Hx Cardiac Disorders: No Hx Congestive Heart Failure: No Hx Hypertension: No Hx Hypercholesterolemia: No Hx Pacemaker: No HX Cerebrovascular Accident: No Hx Seizures: No Hx Dementia: No Hx Diabetes: No Hx Gastrointestinal Disorders: No Hx Liver Disease: No Hx Genitourinary Disorders: No Hx Sexually Transmitted Disorders: No Hx Renal Disease (ESRD): No Hx Thyroid Disease: No Hx Human Immunodeficiency Virus (HIV): No (last 07/06 negative) Hx Hepatitis C: No Hx Depression: Yes Hx Suicide Attempt: No Hx Bipolar Disorder: No Hx Schizophrenia: No Other Medical History: no suicidal,no homicidal - Patient Surgical History Past Surgical History: Yes Hx Neurologic Surgery: No Hx Cataract Extraction: No Hx Cardiac Surgery: No Hx Lung Surgery: No Hx Breast Surgery: No Hx Breast Biopsy: No Hx Abdominal Surgery: No Hx Appendectomy: No Hx Cholecystectomy: No Hx Genitourinary Surgery: No Hx Section: No Hx Orthopedic Surgery: Yes (right hand, fx 2006) Anesthesia Reaction: No - PPD History Previous Implant?: Yes Documented Results: Negative w/o proof Implanted On Prior R Admission?: Yes Date: 05/26/18 Results: not read PPD to be Administered?: Yes - Smoking Cessation Smoking history: Never smoked Have you smoked in the past 12 months: Yes Aproximately how many cigarettes per day: 10 Cigars Per Day: 0 Hx Chewing Tobacco Use: No Initiated information on smoking cessation: Yes 'Breaking Loose' booklet given: 07/16/18 - Substance & Tx. History Hx Alcohol Use: No Substance Use Type: Heroin Hx Substance Use Treatment: Yes ([facility] ) - Substances abused Heroin Substance route: Injection Amount used: 30 bags Age of first use: 29 Date of last use: 07/15/18 Family Disease History - Family Disease History Family Disease History: Diabetes: Grandparent, Other: Mother (suicide), Brother (overdose ), Sister ( suicide) Admission Physical Exam [facility] - Vital Signs Vital Signs: Vital Signs - 24 hr 07/16/18 09:52 Temperature 98.6 F Pulse Rate 89 Respiratory 18 Rate Blood Pressure 125/87 - Physical General Appearance: Yes: Moderate Distress, Tremorous, Irritable, Sweating, Anxious HEENTM: Yes: Normal ENT Inspection, GERI, Pharynx Normal Respiratory: Yes: Lungs Clear, Normal Breath Sounds, No Respiratory Distress Neck: Yes: Within Normal Limits, Supple, Trachea in good position Breast: Yes: Within Normal Limits Cardiology: Yes: Within Normal Limits, Regular Rhythm, Regular Rate, S1, S2 Abdominal: Yes: Within Normal Limits, Normal Bowel Sounds, Non Tender, Soft Genitourinary: Yes: Within Normal Limits Back: Yes: Muscle Spasm Extremities: Yes: Normal Range of Motion, Tremors, Other (scar of right hand) Neurological: Yes: Within Normal Limits, integrated program teacher II-XII NML intact, Alert, Motor Strength 5/5 Integumentary: Yes: Dry Lymphatic: Yes: Within Normal Limits - Diagnostic (1) Opioid dependence with withdrawal Current Visit: No Status: Acute (2) Asthma Current Visit: No Status: Chronic Qualifiers: Asthma severity: mild Asthma persistence: intermittent Asthma complication type: with status asthmaticus Qualified Code(s): J45.22 - Mild intermittent asthma with status asthmaticus (3) Nicotine dependence Current Visit: No Status: Chronic Qualifiers: Nicotine product type: cigarettes Substance use status: uncomplicated Qualified Code(s): F17.210 - Nicotine dependence, cigarettes, uncomplicated (4) Metacarpal bone fracture Current Visit: Yes Status: Acute Cleared for Admission [facility] - Detox or Rehab [facility] Level of Care: Medically Managed Detox Regimen/Protocol: Methadone Breathalyzer - Breathalyzer Breathalyzer: 0 Urine Drug Screen - Test Device Lot number: [id number] Expiration date: 06/18/19 - Control Is test valid?: Yes - Results Drug screen NEGATIVE: No Urine drug screen results: MOP-Opiates, BUP-Suboxone Inpatient Rehab Admission - Rehab Decision to Admit Inpatient rehab admission?: No
[2018-07-16] MEDS ORDERED: METHOCARBAMOL 500 MG TABLET PO PRN (12:35)
[2018-07-16] MEDS ORDERED: ACETAMINOPHEN 325 MG TABLET (FP) PO PRN ×2 (12:35)
[2018-07-16] MEDS ORDERED: hydrOXYzine PAMOATE 25 MG CAPSULE (FP) PO PRN (12:35)
[2018-07-16] MEDS ORDERED: BISMUTH SUBSALICYLATE 262 MG/15 ML BTL PO PRN (12:35)
[2018-07-16] MEDS ORDERED: MAGNESIUM CITRATE 300 ML BOTTLE PO PRN (12:35)
[2018-07-16] MEDS ORDERED: MAGNESIUM HYDROX 2400MG/30ML ORAL SUSPENSION 30 ML CUP PO PRN (12:35)
[2018-07-16] MEDS ORDERED: cloNIDine HCL 0.1 MG TABLET PO PRN (12:35)
[2018-07-16] MEDS ORDERED: MAG HYDROX/AL HYDROX/SIMETH 30 ML UNIT-DOSE CUP PO PRN (12:35)
[2018-07-16] MEDS ORDERED: MENTHOL/PHENOL 1 EACH UD MM PRN (12:35)
[2018-07-16] MEDS ORDERED: IBUPROFEN 400 MG TABLET (FP) PO PRN (12:35)
[2018-07-16] MEDS ORDERED: METHADONE HCL 10 MG TABLET (FOR DETOX USE ONLY) PO ONE ×2 (14:00→23:00)
[2018-07-16] MEDS: diazePAM 5 MG TABLET PO PRN ×2 (14:39→22:26)
[2018-07-16] MEDS: NICOTINE 21 MG/24 HOURS TOPICAL PATCH TD SCH (14:44)
[2018-07-16 16:33] LABS: HEMATOCRIT 43.7 % (35.4-49); HEMOGLOBIN 14.2 GM/dL (11.7-16.9); MCH 27.8 pg (25.7-33.7); MCHC 32.4 g/dl (32.0-35.9); MEAN CELL VOLUME 85.8 fl (80-96); MEAN PLT VOLUME 7.4 fl (7.5-11.1); PLATELET COUNT 397 K/MM3 (134-434); RDW 13.8 % (11.9-15.9); WHITE BLOOD COUNT 11.1 K/mm3 (4.0-10.0)
[2018-07-16 16:45] LABS: ALBUMIN 3.6 g/dl (3.4-5.0); BILIRUBIN,TOTAL 0.5 mg/dL (0.2-1); CALCIUM 9.7 mg/dL (8.5-10.1); CREATININE 0.7 mg/dL (0.55-1.3); POTASSIUM 4.1 mmol/L (3.5-5.1); TOT PROT 7.8 g/dl (6.4-8.2)
[2018-07-16] MEDS: MELATONIN 5 MG TABLETS PO PRN (22:24)
[2018-07-16] MEDS: THIAMINE HCL 100 MG TABLET (FP) PO SCH (22:24)
[2018-07-17] MEDS: diazePAM 5 MG TABLET PO PRN ×3 (09:44→19:52)
[2018-07-17] MEDS: NICOTINE 21 MG/24 HOURS TOPICAL PATCH TD SCH (09:44)
[2018-07-17] MEDS: PRENATAL VITAMINS W/ FOLIC ACID TABLET (FP) PO SCH (09:44)
[2018-07-17] MEDS ORDERED: METHADONE HCL 10 MG TABLET (FOR DETOX USE ONLY) PO ONE (10:00)
--- NOTE | 2018-07-17 10:12 | PN ---
BHS COWS - Scale Resting Pulse: 0= CT 80 or Below Sweatin= Chills/Flushing Restless Observation: 1= Difficult to Sit Still Pupil Size: 1= Pupils >than Normal Bone or Joint Aches: 2= Severe Diffuse Aches Runny Nose/ Eye Tearin= Nasal Congestion GI Upset > 30mins: 1= Stomach Cramp Tremor Observation of Outstretched Hands: 2= Slight Tremor Visible Yawning Observation: 2= >3x During Session Anxiety or Irritability: 2=Irritable/Anxious Goose Flesh Skin: 0=Smooth Skin COWS Score: 13 BHS Progress Note (SOAP) Subjective: body aches restlessness poor food and fluid toleration Objective: 07/17/18 10:12 Vital Signs Temperature 97.2 F L 07/17/18 09:12 Pulse Rate 70 07/17/18 09:12 Respiratory Rate 18 07/17/18 09:12 Blood Pressure 124/71 07/17/18 09:12 O2 Sat by Pulse Oximetry (%) Laboratory Last Values WBC 11.1 K/mm3 (4.0-10.0) H 07/16/18 13:00 RBC 5.10 M/mm3 (4.00-5.60) 07/16/18 13:00 Hgb 14.2 GM/dL (11.7-16.9) 07/16/18 13:00 Hct 43.7 % (35.4-49) 07/16/18 13:00 MCV 85.8 fl (80-96) 07/16/18 13:00 MCH 27.8 pg (25.7-33.7) 07/16/18 13:00 MCHC 32.4 g/dl (32.0-35.9) 07/16/18 13:00 RDW 13.8 % (11.9-15.9) 07/16/18 13:00 Plt Count 397 K/MM3 (134-434) 07/16/18 13:00 MPV 7.4 fl (7.5-11.1) L 07/16/18 13:00 Sodium 137 mmol/L (136-145) 07/16/18 13:00 Potassium 4.1 mmol/L (3.5-5.1) 07/16/18 13:00 Chloride 105 mmol/L (98-107) 07/16/18 13:00 Carbon Dioxide 25 mmol/L (21-32) 07/16/18 13:00 Anion Gap 7 MMOL/L (8-16) L 07/16/18 13:00 BUN 8 mg/dL (7-18) 07/16/18 13:00 Creatinine 0.7 mg/dL (0.55-1.3) 07/16/18 13:00 Est GFR (CKD-EPI)AfAm 144.72 07/16/18 13:00 Est GFR (CKD-EPI)NonAf 124.87 07/16/18 13:00 Random Glucose 108 mg/dL (74-106) H 07/16/18 13:00 Calcium 9.7 mg/dL (8.5-10.1) 07/16/18 13:00 Total Bilirubin 0.5 mg/dL (0.2-1) 07/16/18 13:00 AST 19 U/L (15-37) 07/16/18 13:00 ALT 25 U/L (13-61) 07/16/18 13:00 Alkaline Phosphatase 81 U/L (45-117) 07/16/18 13:00 Total Protein 7.8 g/dl (6.4-8.2) 07/16/18 13:00 Albumin 3.6 g/dl (3.4-5.0) 07/16/18 13:00 lab noted Assessment: 07/17/18 10:12 withdrawal sx Plan: continue detox
[2018-07-17] MEDS: MELATONIN 5 MG TABLETS PO PRN (22:21)
[2018-07-17] MEDS: THIAMINE HCL 100 MG TABLET (FP) PO SCH (22:21)
[2018-07-18] MEDS: diazePAM 5 MG TABLET PO PRN (05:10)
[2018-07-18 09:40] VITALS: BP 126/90; PULSE 109; TEMP 96.3
[2018-07-18] MEDS ORDERED: METHADONE HCL 10 MG TABLET (FOR DETOX USE ONLY) PO ONE (10:00)
[2018-07-18] MEDS: NICOTINE 21 MG/24 HOURS TOPICAL PATCH TD SCH (10:21)
[2018-07-18] MEDS: PRENATAL VITAMINS W/ FOLIC ACID TABLET (FP) PO SCH (10:21)
--- NOTE | 2018-07-18 18:48 | PN ---
BHS COWS - Scale Resting Pulse: 2= GA 101-120 Sweatin= Chills/Flushing Restless Observation: 1= Difficult to Sit Still Pupil Size: 0= Normal to Room Light Bone or Joint Aches: 2= Severe Diffuse Aches Runny Nose/ Eye Tearin= None GI Upset > 30mins: 0= None Tremor Observation of Outstretched Hands: 0= None Yawning Observation: 1= 1-2x During Session Anxiety or Irritability: 2=Irritable/Anxious Goose Flesh Skin: 3=Piloerection COWS Score: 12 BHS Progress Note (SOAP) Subjective: Body Aches, Anxious, Restless, Interrupted Sleep. Objective: PATIENT A & O X 3, OBSERVED AMBULATING ON UNIT UNASSISTED. IN NO ACUTE DISTRESS. 07/18/18 18:46 Vital Signs Temperature 96.3 F L 07/18/18 09:00 Pulse Rate 109 H 07/18/18 09:00 Respiratory Rate 18 07/18/18 09:00 Blood Pressure 126/90 07/18/18 09:00 O2 Sat by Pulse Oximetry (%) Laboratory Tests 07/16/18 07/16/18 07/16/18 13:00 13:00 13:00 WBC 11.1 H RBC 5.10 Hgb 14.2 Hct 43.7 MCV 85.8 MCH 27.8 MCHC 32.4 RDW 13.8 Plt Count 397 MPV 7.4 L Sodium 137 Potassium 4.1 Chloride 105 Carbon Dioxide 25 Anion Gap 7 L BUN 8 Creatinine 0.7 Est GFR (CKD-EPI)AfAm 144.72 Est GFR (CKD-EPI)NonAf 124.87 Random Glucose 108 H Calcium 9.7 Total Bilirubin 0.5 AST 19 ALT 25 Alkaline Phosphatase 81 Total Protein 7.8 Albumin 3.6 RPR Titer Nonreactive LABS NOTED. Assessment: 07/18/18 18:46 WITHDRAWAL SYMPTOMS. LEUKOCYTOSIS. Plan: CONTINUE DETOX. INCREASE DAILY PO FLUID / WATER INTAKE. REPEAT CBC INTENDED TO BE ORDERED FOR ELEVATED WBC LEVEL NOTED DETOX ADMISSION LABORATORY ASSESSMENT. HOWEVER, PATIENT LEFT DETOX UNIT AGAINST MEDICAL ADVICE.
--- NOTE | 2018-07-18 18:54 | DS ---
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 RISKS OF LEAVING DETOX UNIT AGAINST MEDICAL ADVICE AND PRIOR TO COMPLETION OF DETOX REGIMEN EXPLAINED TO PATIENT. PATIENT ADVISED TO GO IMMEDIATELY TO NEAREST ER SHOULD ANY INTOLERABLE WITHDRAWAL / DETOX SYMPTOMS DEVELOP AT ANY TIME. PATIENT ALSO ADVISED TO FOLLOW-UP SOON POSSIBLE WITH DOOR MANAGER FOR GENERAL MEDICAL ASSESSMENT AND FOR ELEVATED WBC LEVEL NOTED ON DETOX ADMISSION LABORATORY ASSESSMENT (PATIENT IS LEAVING DETOX UNIT AMA BEFORE REPEAT CBC CANE BE DONE). PATIENT VERBALIZED UNDERSTANDING OF ALL INFORMATION / RECOMMENDATIONS PRESENTED TO HIM PRIOR TO DEPARTURE FROM DETOX UNIT. COPIES OF RESULTS OF ALL LABS DRAWN WHILE ADMITTED FOR DETOX GIVEN TO PATIENT AT TIME OF DISCHARGE FROM DETOX UNIT. PATIENT LEFT DETOX UNIT IN STABLE MEDICAL CONDITION (AND AFEBRILE). Pertinent Past History: Nicotine Dependence, Insomnia, Depression, Asthma, History Of Metacarpal Bone Fracture. - Physical Exam Results Vital Signs: Vital Signs Temperature 96.3 F L 07/18/18 09:00 Pulse Rate 109 H 07/18/18 09:00 Respiratory Rate 18 07/18/18 09:00 Blood Pressure 126/90 07/18/18 09:00 O2 Sat by Pulse Oximetry (%) Pertinent Admission Physical Exam Findings: WITHDRAWAL SYMPTOMS. Laboratory Tests 07/16/18 07/16/18 07/16/18 13:00 13:00 13:00 WBC 11.1 H RBC 5.10 Hgb 14.2 Hct 43.7 MCV 85.8 MCH 27.8 MCHC 32.4 RDW 13.8 Plt Count 397 MPV 7.4 L Sodium 137 Potassium 4.1 Chloride 105 Carbon Dioxide 25 Anion Gap 7 L BUN 8 Creatinine 0.7 Est GFR (CKD-EPI)AfAm 144.72 Est GFR (CKD-EPI)NonAf 124.87 Random Glucose 108 H Calcium 9.7 Total Bilirubin 0.5 AST 19 ALT 25 Alkaline Phosphatase 81 Total Protein 7.8 Albumin 3.6 RPR Titer Nonreactive LABS NOTED. - Treatment Hospital Course: Detox Protocol Followed, Detoxed Safely - Diagnosis (1) Leukocytosis Status: Acute Qualifiers: Leukocytosis type: unspecified Qualified Code(s): D72.829 - Elevated white blood cell count, unspecified (2) Nicotine dependence Status: Chronic Qualifiers: Nicotine product type: cigarettes Substance use status: uncomplicated Qualified Code(s): F17.210 - Nicotine dependence, cigarettes, uncomplicated (3) Opioid dependence with withdrawal Status: Acute (4) Asthma Status: Chronic Qualifiers: Asthma severity: mild Asthma persistence: intermittent Asthma complication type: uncomplicated Qualified Code(s): J45.20 - Mild intermittent asthma, uncomplicated (5) Metacarpal bone fracture Status: Acute Qualifiers: Encounter type: sequela Metacarpal bone: unspecified metacarpal Fracture type: closed Metacarpal location: unspecified portion of metacarpal Fracture morphology: unspecified fracture morphology Qualified Code(s): S62.309S - Unspecified fracture of unspecified metacarpal bone, sequela - AMA Did Patient Leave Against Medical Advice: Yes (PATIENT DID NOT WISH TO REMAIN TO COMPLETE DETOX REGIMEN.)
[2018-07-19] MEDS ORDERED: METHADONE HCL 10 MG TABLET (FOR DETOX USE ONLY) PO ONE (10:00)
[2018-07-19] MEDS ORDERED: METHADONE (DETOX) 10 MG, METHADONE (DETOX) 5 MG PO ONE (10:00)
[2018-07-20] MEDS ORDERED: METHADONE HCL 5 MG TABLET (FOR DETOX USE ONLY) PO ONE (06:00)
[2018-07-20] MEDS ORDERED: METHADONE HCL 10 MG TABLET (FOR DETOX USE ONLY) PO ONE (10:00)
[2018-07-21] MEDS ORDERED: METHADONE HCL 5 MG TABLET (FOR DETOX USE ONLY) PO ONE (06:00)
== END 2018-07-18 09:10 | disposition left against medical advice (07) | DRG 770 ==
LOC: YASAS 22:02 → Y3N 07-16 08:24 → UNDOADMIN 07-16 08:24 → Y3N 07-16 12:51
PROVIDERS: ADMIT Surgery; ATTEND Surgery
PROC: HZ2ZZZZ Detoxification Services for Substance Abuse Treatment (ICD-10-PCS; principal; 2018-07-16)
DX: F11.23 Opioid dependence with withdrawal (principal); F17.210 Nicotine dependence, cigarettes, uncomplicated; D72.829 Elevated white blood cell count, unspecified; J45.20 Mild intermittent asthma, uncomplicated
CPT/HCPCS: 36415; 80053; 85027; 86593

== ENCOUNTER 2018-11-19 18:26 | Inpatient (IN) | payer SELFPAY ==
[2018-11-19 23:39] VITALS: BMI 25.1
--- NOTE | 2018-11-20 02:29 | HP ---
COWS - Scale Resting Pulse: 0= [place] 80 or Below Sweatin=Flushed/Facial Moisture Restless Observation: 1= Difficult to Sit Still Pupil Size: 1= Pupils >than Normal Bone or Joint Aches: 4=Acute Joint/Muscle Pain Runny Nose/ Eye Tearin= Runny Nose/Eyes GI Upset > 30mins: 1= Stomach Cramp Tremor Observation: 2= Slight Tremor Visible Yawning Observation: 1= 1-2x During Session Anxiety or Irritability: 4=Extreme Anxiety Goose Flesh Skin: 0=Smooth Skin COWS Score: 18 CIWA Score - Admission Criteria [facility]ASAS Guidelines: Admission for Medically Managed Detox: Requires at least one of the followin. CIWA greater than 12 2. Seizures within the past 24 hours 3. Delirium tremens within the past 24 hours 4. Hallucinations within the past 24 hours 5. Acute intervention needed for co occurring medical disorder 6. Acute intervention needed for co occurring psychiatric disorder 7. Severe withdrawal that cannot be handled at a lower level of care (continued vomiting, continued diarrhea, abnormal vital signs) requiring intravenous medication and/or fluids 8. 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 Patient has been admitted multiple times but has always left AMA. He has promised to complete this admission. He states that he has always relapsed as soon as he signed out on his prior admissions. He has been using heroin for 5 years and reports insignificant period of sobriety. He denies suicide attempt/suicidal ideation at this time. Patient has medical history of asthma and reports psych. history of PTSD and anxiety Exam Limitations: Clinical Condition - Ebola screening Have you traveled outside of the country in the last 21 days: No (N) Have you had contact with anyone from an Ebola affected area: No Do you have a fever: No - Review of Systems Constitutional: Chills, Malaise, Night Sweats, Changes in sleep EENT: reports: No Symptoms Reported, Sinus Pressure Respiratory: reports: No Symptoms reported Cardiac: reports: No Symptoms Reported GI: reports: Poor Appetite, Poor Fluid Intake, Vomiting, Abdominal cramping : reports: No Symptoms Reported Musculoskeletal: reports: Back Pain, Joint Pain, Muscle Pain Integumentary: reports: Dryness, Flushing Neuro: reports: Tremors Endocrine: reports: No Symptoms Reported Hematology: reports: No Symptoms Reported Psychiatric: reports: No Sypmtoms Reported, Mood/Affect Appropiate, Anxious Other Systems: Reviewed and Negative Patient History - Patient Medical History Hx Anemia: No Hx Asthma: Yes (Albuterol) Hx Chronic Obstructive Pulmonary Disease (COPD): No Hx Cancer: No Hx Cardiac Disorders: No Hx Congestive Heart Failure: No Hx Hypertension: No Hx Hypercholesterolemia: No Hx Pacemaker: No HX Cerebrovascular Accident: No Hx Seizures: No Hx Dementia: No Hx Diabetes: No Hx Gastrointestinal Disorders: No Hx Liver Disease: No Hx Genitourinary Disorders: No Hx Sexually Transmitted Disorders: No Hx Renal Disease (ESRD): No Hx Thyroid Disease: No Hx Human Immunodeficiency Virus (HIV): No (last 07/06 negative) Hx Hepatitis C: No Hx Depression: Yes ( Not o medication) Hx Suicide Attempt: No Hx Bipolar Disorder: No Hx Schizophrenia: No - Patient Surgical History Past Surgical History: Yes Hx Neurologic Surgery: No Hx Cataract Extraction: No Hx Cardiac Surgery: No Hx Lung Surgery: No Hx Breast Surgery: No Hx Breast Biopsy: No Hx Abdominal Surgery: No Hx Appendectomy: No Hx Cholecystectomy: No Hx Genitourinary Surgery: No Hx Section: No Hx Orthopedic Surgery: Yes (right hand, fx 2006) Anesthesia Reaction: No - PPD History Previous Implant?: Yes Implanted On Prior [facility] Admission?: Yes Date: 05/26/18 Results: not read PPD to be Administered?: Yes - Reproductive History Patient is a Female of Child Bearing Age (11 -55 yrs old): No (male) - Smoking Cessation Smoking history: Current every day smoker Have you smoked in the past 12 months: Yes Aproximately how many cigarettes per day: 10 Cigars Per Day: 0 Hx Chewing Tobacco Use: No Initiated information on smoking cessation: Yes 'Breaking Loose' booklet given: 11/20/18 - Substance & Tx. History Hx Alcohol Use: No Hx Substance Use: Yes Substance Use Type: Cocaine, Heroin Hx Substance Use Treatment: Yes ([facility]) - Substances abused Heroin Substance route: Injection Frequency: Daily Amount used: 30 bags Age of first use: 29 Date of last use: 11/19/18 Crack Substance route: Smoking Frequency: Daily Amount used: ' i don't know'. Age of first use: 33 Date of last use: 11/19/18 Admission Physical Exam [facility] - Vital Signs Vital Signs: Vital Signs - 24 hr 11/19/18 11/20/18 23:29 02:13 Temperature 98.4 F 98.4 F Pulse Rate 77 77 Respiratory 16 18 Rate Blood Pressure 129/72 129/72 - Physical General Appearance: Yes: Moderate Distress, Tremorous, Anxious HEENTM: Yes: Within Normal Limits Respiratory: Yes: Lungs Clear, Normal Breath Sounds, No Respiratory Distress Neck: Yes: Supple Breast: Yes: Breast Exam Deferred Cardiology: Yes: Regular Rhythm, Regular Rate Abdominal: Yes: Normal Bowel Sounds, Soft Genitourinary: Yes: Within Normal Limits Back: Yes: Normal Inspection Extremities: Yes: Tremors Neurological: Yes: Within Normal Limits, Alert, Normal Mood/Affect Integumentary: Yes: Warm Lymphatic: Yes: Within Normal Limits - Diagnostic (1) Opioid dependence with withdrawal Current Visit: No Status: Acute (2) Asthma Current Visit: No Status: Chronic Qualifiers: Asthma severity: mild Asthma persistence: intermittent Asthma complication type: uncomplicated Qualified Code(s): J45.20 - Mild intermittent asthma, uncomplicated (3) Nicotine dependence Current Visit: No Status: Chronic Qualifiers: Nicotine product type: cigarettes Substance use status: uncomplicated Qualified Code(s): F17.210 - Nicotine dependence, cigarettes, uncomplicated (4) Depression Current Visit: No Status: Suspected Qualifiers: Depression Type: dysthymia Qualified Code(s): F34.1 - Dysthymic disorder Cleared for Admission [facility] - Detox or Rehab [facility] Level of Care: Medically Managed Detox Regimen/Protocol: Methadone Breathalyzer - Breathalyzer Breathalyzer: 0 Urine Drug Screen - Test Device Lot number: [id number] Expiration date: 07/18/20 - Control Is test valid?: Yes - Results Drug screen NEGATIVE: No Urine drug screen results: ELVIA-Cocaine, MOP-Opiates, OXY-Oxycodone Inpatient Rehab Admission - Rehab Decision to Admit Inpatient rehab admission?: No
[2018-11-20] MEDS ORDERED: MENTHOL/PHENOL 1 EACH UD MM PRN (02:47)
[2018-11-20] MEDS ORDERED: MAGNESIUM CITRATE 300 ML BOTTLE PO PRN (02:47)
[2018-11-20] MEDS ORDERED: NICOTINE POLACRILEX 2 MG GUM BUC PRN (02:47)
[2018-11-20] MEDS ORDERED: BISMUTH SUBSALICYLATE 524 MG/30 ML UD PO PRN (02:47)
[2018-11-20] MEDS ORDERED: hydrOXYzine PAMOATE 25 MG CAPSULE (FP) PO PRN (02:47)
[2018-11-20] MEDS ORDERED: cloNIDine HCL 0.1 MG TABLET PO PRN (02:47)
[2018-11-20] MEDS ORDERED: MELATONIN 5 MG TABLETS PO PRN (02:47)
[2018-11-20] MEDS ORDERED: METHOCARBAMOL 500 MG TABLET PO PRN (02:47)
[2018-11-20] MEDS ORDERED: IBUPROFEN 400 MG TABLET (FP) PO PRN (02:47)
[2018-11-20] MEDS ORDERED: METHADONE HCL 10 MG TABLET (FOR DETOX USE ONLY) PO ONE (02:47)
[2018-11-20] MEDS ORDERED: MAG HYDROX/AL HYDROX/SIMETH 30 ML UNIT-DOSE CUP PO PRN (02:47)
[2018-11-20] MEDS ORDERED: MAGNESIUM HYDROX 2400MG/30ML ORAL SUSPENSION 30 ML CUP PO PRN (02:47)
[2018-11-20] MEDS ORDERED: ACETAMINOPHEN 325 MG TABLET (FP) PO PRN ×2 (02:47)
[2018-11-20] MEDS: PRENATAL VITAMINS W/ FOLIC ACID TABLET (FP) PO SCH (10:04)
[2018-11-20] MEDS: NICOTINE 14 MG/24 HOURS TOPICAL PATCH TD SCH (10:05)
--- NOTE | 2018-11-20 14:37 | EKG ---
Test Reason : Blood Pressure : / mmHG Vent. Rate : 056 BPM Atrial Rate : 056 BPM P-R Int : 120 ms QRS Dur : 088 ms QT Int : 462 ms P-R-T Axes : 044 077 070 degrees QTc Int : 445 ms SINUS BRADYCARDIA WITH SINUS ARRHYTHMIA ST ELEVATION, CONSIDER EARLY REPOLARIZATION, PERICARDITIS, OR INJURY ABNORMAL ECG WHEN COMPARED WITH ECG OF 25-MAY-2018 12:07, T WAVE AMPLITUDE HAS INCREASED IN ANTERIOR LEADS Confirmed by BRANDON GARCIA MD ([id number]) on 11/20/2018 2:36:29 PM Referred By: Ashley Garza Confirmed By:BRANDON GARCIA MD
--- NOTE | 2018-11-20 14:49 | PN ---
[facility] COWS - Scale Resting Pulse: 0= [place] 80 or Below Sweatin= Chills/Flushing Restless Observation: 0= Sits Still Pupil Size: 0= Normal to Room Light Bone or Joint Aches: 2= Severe Diffuse Aches Runny Nose/ Eye Tearin= None GI Upset > 30mins: 0= None Tremor Observation of Outstretched Hands: 2= Slight Tremor Visible Yawning Observation: 1= 1-2x During Session Anxiety or Irritability: 2=Irritable/Anxious Goose Flesh Skin: 3=Piloerection COWS Score: 11 B[facility] Progress Note (SOAP) Subjective: Anxious, Fatigue, Body Aches. Objective: PATIENT A & O X 3. IN NO ACUTE DISTRESS. 11/20/18 14:51 Vital Signs Temperature 97.0 F L 11/20/18 13:07 Pulse Rate 77 11/20/18 13:07 Respiratory Rate 18 11/20/18 13:07 Blood Pressure 133/85 11/20/18 13:07 O2 Sat by Pulse Oximetry (%) DETOX ADMISSION LAB RESULTS PENDING. 11/20/18 14:52 Assessment: 11/20/18 14:52 WITHDRAWAL SYMPTOMS. Plan: CONTINUE DETOX.
[2018-11-20] MEDS ORDERED: THIAMINE HCL 100 MG TABLET (FP) PO SCH (22:00)
[2018-11-21] MEDS ORDERED: METHADONE HCL 10 MG TABLET (FOR DETOX USE ONLY) ONE (08:46)
[2018-11-21] MEDS ORDERED: METHADONE HCL 5 MG TABLET (FOR DETOX USE ONLY) ONE (08:47)
[2018-11-21] MEDS ORDERED: METHADONE (DETOX) 20 MG, METHADONE (DETOX) 5 MG PO ONE (10:00)
[2018-11-21] MEDS: PRENATAL VITAMINS W/ FOLIC ACID TABLET (FP) PO SCH (10:07)
[2018-11-21] MEDS: NICOTINE 14 MG/24 HOURS TOPICAL PATCH TD SCH (10:07)
[2018-11-21 10:32] LABS: HEMATOCRIT 42.1 % (35.4-49); HEMOGLOBIN 13.6 GM/dL (11.7-16.9); MCH 27.4 pg (25.7-33.7); MCHC 32.3 g/dl (32.0-35.9); MEAN CELL VOLUME 84.7 fl (80-96); MEAN PLT VOLUME 8.2 fl (7.5-11.1); PLATELET COUNT 481 K/MM3 (134-434); RBC 4.97 M/mm3 (4.00-5.60); RDW 14.5 % (11.9-15.9); WHITE BLOOD COUNT 11.5 K/mm3 (4.0-10.0)
[2018-11-21 10:55] LABS: ALBUMIN 2.9 g/dl (3.4-5.0); BILIRUBIN,TOTAL 0.4 mg/dL (0.2-1); BLOOD UREA NITROGEN 8.7 mg/dL (7-18); CALCIUM 9.1 mg/dL (8.5-10.1); CREATININE 0.8 mg/dL (0.55-1.3); POTASSIUM 5.2 mmol/L (3.5-5.1); TOT PROT 7.6 g/dl (6.4-8.2)
--- NOTE | 2018-11-21 13:23 | PN ---
[facility] COWS - Scale Resting Pulse: 0= [place] 80 or Below Sweatin= Chills/Flushing Restless Observation: 1= Difficult to Sit Still Pupil Size: 0= Normal to Room Light Bone or Joint Aches: 2= Severe Diffuse Aches Runny Nose/ Eye Tearin= Nasal Congestion GI Upset > 30mins: 0= None Tremor Observation of Outstretched Hands: 0= None Yawning Observation: 1= 1-2x During Session Anxiety or Irritability: 2=Irritable/Anxious Goose Flesh Skin: 0=Smooth Skin COWS Score: 8 BHS Progress Note (SOAP) Subjective: Anxious, Body Aches, Fatigue. Objective: PATIENT A & O X 3. IN NO ACUTE DISTRESS. 11/21/18 15:05 Vital Signs Temperature 96.1 F L 11/21/18 13:05 Pulse Rate 56 L 11/21/18 13:05 Respiratory Rate 18 11/21/18 13:05 Blood Pressure 114/73 11/21/18 13:05 O2 Sat by Pulse Oximetry (%) Laboratory Tests 11/21/18 11/21/18 11/21/18 08:00 08:00 08:00 WBC 11.5 H RBC 4.97 Hgb 13.6 Hct 42.1 MCV 84.7 MCH 27.4 MCHC 32.3 RDW 14.5 Plt Count 481 H D MPV 8.2 D Sodium 137 Potassium 5.2 H Chloride 105 Carbon Dioxide 23 Anion Gap 9 BUN 8.7 Creatinine 0.8 Est GFR (CKD-EPI)AfAm 136.99 Est GFR (CKD-EPI)NonAf 118.20 Random Glucose 94 Calcium 9.1 Total Bilirubin 0.4 AST 41 H ALT 26 Alkaline Phosphatase 69 Total Protein 7.6 Albumin 2.9 L RPR Titer Nonreactive LABS NOTED. Assessment: 11/21/18 13:25 WITHDRAWAL SYMPTOMS. LEUKOCYTOSIS. HYPERKALEMIA. ELEVATED AST LEVEL. 11/21/18 13:25 Plan: CONTINUE DETOX. INCREASE DAILY PO WATER INTAKE. REPEAT CBC TOMORROW AM FOR ELEVATED WBC LEVEL NOTED ON DETOX ADMISSION LABORATORY ASSESSMENT. PATIENT REPORTS HISTORY OF IVDU. SITE MOST RECENTLY ACCESSED: RIGHT FOREARM. MILD BRUISING NOTED AT SITE. NO SWELLING, ERYTHEMA OR DISCHARGE NOTED AT SITE. REPEAT K LEVEL TO BE DRAWN TOMORROW FOR ELEVATED K LEVEL NOTED ON DETOX ADMISSION LABORATORY ASSESSMENT.
--- NOTE | 2018-11-21 18:52 | PN ---
[facility] Progress Note Note: Patient states has to leave because sister . Alert and oriented. Gait steady. Patient w/ tremors, goose flesh, facial moisture, and pupils = 4mm. Discussed the current symptoms and that continued medications are recommended. Discussed the withdrawal symptoms and now added stress of loss of his sister as high trigger for relapse. Discussed overdose risks and relapse prevention techniques. Patient states has a Narcan kit at home. Encouraged to review Narcan use w/ family. Patient declined nicotine patch and gum. Patient left AMA, despite encouragement to stay.
--- NOTE | 2018-11-21 18:58 | DS ---
[facility] Detox Discharge Summary Admission Date: 11/20/18 Discharge Date: 11/21/18 - History Present History: Opioid Dependence Additional Comments: Patient admitted c/o w/ opioid withdrawal. - Physical Exam Results Vital Signs: Vital Signs Temperature 97.2 F L 11/21/18 17:00 Pulse Rate 71 11/21/18 17:00 Respiratory Rate 18 11/21/18 17:00 Blood Pressure 123/73 11/21/18 17:00 O2 Sat by Pulse Oximetry (%) Pertinent Admission Physical Exam Findings: Patient admitted w/ opioid withdrawal symptoms. Laboratory Last Values WBC 11.5 K/mm3 (4.0-10.0) H 11/21/18 08:00 RBC 4.97 M/mm3 (4.00-5.60) 11/21/18 08:00 Hgb 13.6 GM/dL (11.7-16.9) 11/21/18 08:00 Hct 42.1 % (35.4-49) 11/21/18 08:00 MCV 84.7 fl (80-96) 11/21/18 08:00 MCH 27.4 pg (25.7-33.7) 11/21/18 08:00 MCHC 32.3 g/dl (32.0-35.9) 11/21/18 08:00 RDW 14.5 % (11.9-15.9) 11/21/18 08:00 Plt Count 481 K/MM3 (134-434) H D 11/21/18 08:00 MPV 8.2 fl (7.5-11.1) D 11/21/18 08:00 Sodium 137 mmol/L (136-145) 11/21/18 08:00 Potassium 5.2 mmol/L (3.5-5.1) H 11/21/18 08:00 Chloride 105 mmol/L (98-107) 11/21/18 08:00 Carbon Dioxide 23 mmol/L (21-32) 11/21/18 08:00 Anion Gap 9 MMOL/L (8-16) 11/21/18 08:00 BUN 8.7 mg/dL (7-18) 11/21/18 08:00 Creatinine 0.8 mg/dL (0.55-1.3) 11/21/18 08:00 Est GFR (CKD-EPI)AfAm 136.99 11/21/18 08:00 Est GFR (CKD-EPI)NonAf 118.20 11/21/18 08:00 Random Glucose 94 mg/dL (74-106) 11/21/18 08:00 Calcium 9.1 mg/dL (8.5-10.1) 11/21/18 08:00 Total Bilirubin 0.4 mg/dL (0.2-1) 11/21/18 08:00 AST 41 U/L (15-37) H 11/21/18 08:00 ALT 26 U/L (13-61) 11/21/18 08:00 Alkaline Phosphatase 69 U/L (45-117) 11/21/18 08:00 Total Protein 7.6 g/dl (6.4-8.2) 11/21/18 08:00 Albumin 2.9 g/dl (3.4-5.0) L 11/21/18 08:00 RPR Titer Nonreactive (NONREACTIVE) 11/21/18 08:00 Labs reviewed. DISCHARGE ASSESSMENT: Alert and oriented. Gait steady. Patient w/ tremors, goose flesh, facial moisture, and pupils = 4mm. Discussed the current symptoms and that continued medications are recommended. Discussed the withdrawal symptoms and now added stress of loss of his sister as high trigger for relapse. Discussed overdose risks and relapse prevention techniques. Patient states has a Narcan kit at home. Encouraged to review Narcan use w/ family. Patient declined nicotine patch and gum. - Treatment Hospital Course: Detox Protocol Followed (Patient did not complete detox.) - Medication Discharge Medications: Ambulatory Orders Alprazolam [Xanax] 2 mg PO BID 11/19/18 Dextroamphetamine/Amphetamine [Adderall Xr 30 mg Capsule] 1 cap PO DAILY - AMA Did Patient Leave Against Medical Advice: Yes (Patient refused to stay despite encouragement and obvious need.)
[2018-11-21 19:58] VITALS: BP 105/58; PULSE 58; TEMP 97.9
[2018-11-22] MEDS ORDERED: METHADONE HCL 10 MG TABLET (FOR DETOX USE ONLY) PO ONE (10:00)
[2018-11-23] MEDS ORDERED: METHADONE (DETOX) 10 MG, METHADONE (DETOX) 5 MG PO ONE (10:00)
[2018-11-24] MEDS ORDERED: METHADONE HCL 10 MG TABLET (FOR DETOX USE ONLY) PO ONE (10:00)
[2018-11-25] MEDS ORDERED: METHADONE HCL 5 MG TABLET (FOR DETOX USE ONLY) PO ONE (06:00)
== END 2018-11-21 18:40 | disposition left against medical advice (07) | DRG 770 ==
LOC: YASAS 18:26 → Y3N 11-20 02:49
PROVIDERS: ADMIT Surgery; ATTEND Surgery
PROC: HZ2ZZZZ Detoxification Services for Substance Abuse Treatment (ICD-10-PCS; principal; 2018-11-20)
DX: F11.23 Opioid dependence with withdrawal (principal); F14.20 Cocaine dependence, uncomplicated; F17.210 Nicotine dependence, cigarettes, uncomplicated; F34.1 Dysthymic disorder; E87.5 Hyperkalemia; D72.829 Elevated white blood cell count, unspecified; R94.5 Abnormal results of liver function studies
CPT/HCPCS: 36415; 80053; 85027; 86593; 93005; 93010